=== PATIENT | male | born 1970 | race Caucasian/White ===

== ENCOUNTER 2017-12-15 22:59 | Emergency (ER) | payer BC ==
[~2017-12-15] VITALS: Ht 182.9 cm; Wt 114.3 kg
[~2017-12-15 22:59] MED LIST: LANS30CA8 PO; LEVO500T78 PO; PHEN200T27 PO; TRAM50TA2 PO
[2017-12-16] MEDS ORDERED: morphine INJ 10 MG/ML 1ML (SYR OR VIAL) IM STA (00:03)
[2017-12-16] MEDS ORDERED: KETOROLAC 60 MG/2 ML VIAL IM STA (00:03)
[2017-12-16] MEDS ORDERED: BENZ200C51 (00:04)
[2017-12-16] MEDS ORDERED: AMOX875T2 (00:04)
[2017-12-16] MEDS ORDERED: DEXAMETHASONE 10 MG/ML (DECADRON) 1 ML VIAL IM ONE (00:15)
--- NOTE | 2017-12-16 00:43 | ED EENT ---
History of Present Illness General Chief Complaint: Oral/Throat Problems Stated Complaint: COUGH;SORE THROAT Nursing Triage Note: PT TO ED 7 W/ C/O SORE THROAT ONSET SAT, WORSE TODAY. REPORTS WAS SEEN AT " THAT ONE PLACE, I DON'T KNOW THE NAME NOW" ET WAS TOLD HE DIDN'T HAVE THE FLU BUT IS BEING TREATED FOR STREP. STATES NOW IS "ALMOST" UNABLE TO SWALLOW. NO OTHER C/O VOICED Source: patient, family Exam Limitations: no limitations History of Present Illness Date Seen by Provider: Dec 15, 2017 Time Seen by Provider: 23:55 Initial Comments Here with report of fairly significant sore throat today and yesterday. States that he is UNABLE to swallow. He is able to swallow his secretions. Take ibuprofen at about 3 p.m. and has not taken anything since. [facility] and started on amoxicillin after influenza was negative given his sore throat and concerns for possible strep throat. Has started that. States the pain is quite significant was actually unable to sleep last night due to the pain. Timing/Duration: gradual, yesterday Severity: moderate Location: throat Prearrival Treatment: over the counter meds, prescription meds Associated Symptoms: No cough, No ear drainage, fever, nasal congestion/ drainage, sore throat Allergies and Home Medications Allergies Coded Allergies: No Known Drug Allergies (Unverified , 08/28/14) Home Medications Amoxicillin 875 Mg Tablet, (Reported) Benzonatate 200 Mg Capsule, (Reported) Review of Systems Constitutional: see HPI, No chills, fever Eyes: No Symptoms Reported Ears: No Symptoms Reported Nose: pain, clear discharge Mouth: no symptoms reported Throat: pain, swelling, denies neck stiffness, denies hoarse, denies aphonia, painful swallowing Respiratory: cough, No short of breath Cardiovascular: no symptoms reported Gastrointestinal: no symptoms reported Skin: no symptoms reported Past Uoblyrf-Mpsjfy-Ildidi Hx Patient Social History Alcohol Use: Denies Use Recreational Drug Use: No Smoking Status: Never a Smoker Recent Foreign Travel: No Contact w/Someone Who Travel: No Recent Infectious Disease Expo: No Physical Abuse: No Sexual Abuse: No Mistreated: No Fear: No Surgeries History of Surgeries: Yes (knee, hernia, thumb) Surgeries: Appendectomy, Orthopedic Respiratory History of Respiratory Disorde: Yes (asthma as child) Respiratory Disorders: Asthma Cardiovascular History of Cardiac Disorders: No Neurological History of Neurological Disord: No Reproductive System Hx Reproductive Disorders: No Sexually Transmitted Disease: No Gastrointestinal History of Gastrointestinal Di: Yes Gastrointestinal Disorders: Gastroesophageal Reflux Musculoskeletal History of Musculoskeletal Dis: No Endocrine History of Endocrine Disorders: No Cancer History of Cancer: No Psychosocial History of Psychiatric Problem: No Suicide Risk Score: 0 Integumentary History of Skin or Integumenta: No Blood Transfusions History of Blood Disorders: No Reviewed Nursing Assessment Reviewed/Agree w Nursing PMH: Yes Family Medical History Significant Family History: No Pertinent Family Hx Physical Exam Vital Signs Vital Signs - First Documented 12/15/17 23:15 Temp 98.9 Pulse 87 Resp 18 B/P (MAP) 139/100 (113) Pulse Ox 96 O2 Delivery Room Air General Appearance: WD/WN, mild distress (throat pain) Eyes: bilateral eye normal inspection, bilateral eye PERRL, bilateral eye EOMI Ears: bilateral ear auricle normal, bilateral ear canal normal, bilateral ear TM normal Nose: other (moderate bilateral nasal congestion with erythema and clear rhinorrhea) Mouth/Throat: pharynx swelling, pharynx tenderness, No tonsillar exudate Neck: full range of motion, supple, lymphadenopathy (R), lymphadenopathy (L) Cardiovascular: regular rate, rhythm, no murmur Respiratory: lungs clear, normal breath sounds Gastrointestinal: non tender, soft Neurologic/Psychiatric: alert, oriented x 3 Progress/Results/Core Measures Results/Orders My Orders Orders - CINDY FELIX MD Ketorolac Injection (Toradol Injection) (12/16/17 00:03) Morphine Injection (Morphine Injection (12/16/17 00:03) Dexamethasone Injection (Decadron Inject (12/16/17 00:15) Medications Given in ED Current Medications Medications Dose Ordered Sig/Qian Route Start Time Stop Time Status Last Admin Dose Admin Dexamethasone Sodium Phosphate 10 mg ONCE ONCE IM 12/16/17 00:15 12/16/17 00:16 DC 12/16/17 00:20 10 MG Vital Signs/I&O Vital Sign - Last 12Hours 12/15/17 23:15 Temp 98.9 Pulse 87 Resp 18 B/P (MAP) 139/100 (113) Pulse Ox 96 O2 Delivery Room Air Blood Pressure Mean: 113 Progress Note : Progress Note Seen and evaluated. Patient is on amoxicillin already. Given his pain in the pharyngitis we will initiate Decadron 10 mg IM. Also due to pain we will give Toradol 60 mg IM and morphine 10 mg IM. Monitor patient. 0036: A little better. Discharged home with return precautions. Patient verbalize understanding instructions and agreement with plan. Departure Impression Impression: Primary Impression: Pharyngitis Qualified Codes: J02.9 - Acute pharyngitis, unspecified Additional Impression: Upper respiratory infection Qualified Codes: J06.9 - Acute upper respiratory infection, unspecified Disposition: HOME, SELF-CARE Condition: Stable Departure-Patient Inst. Decision time for Depature: 00:39 Referrals: NO,LOCAL PHYSICIAN (PCP/Family) Primary Care Physician Patient Instructions: Strep Throat (DC), Viral Upper Respiratory Infection, Adult (DC) Add. Discharge Instructions: All discharge instructions reviewed with patient and/or family. Voiced understanding. Continue ibuprofen 800 mg every 8 hours as needed for pain. Take other medications as directed. You may take Tylenol or the generic acetaminophen, 1000 mg every 8 hours as needed for fever or pain as well but do not take if you 're taking the hydrocodone-containing medicine as they both have acetaminophen in them. You may alternate Tylenol and ibuprofen every 4 hours. Return for worse pain, fever, vomiting, weakness, breathing problems or other concerns as needed. Drink plenty of fluids. CINDY FELIX MD Dec 16, 2017 00:43
[2017-12-16] MEDS ORDERED: RX-HYDROCODONE/APAP 5/325 MG #4 TAB PK PO PRN (01:00)
[2017-12-16] MEDS ORDERED: ONDANSETRON 4 MG (ZOFRAN) ORAL DISSOLVE TAB ONE (01:04)
[2017-12-16 01:28] VITALS: BP 123/78
--- OUTSIDE RECORDS SUMMARY | 2017-12-16 10:19 | XMS REPORT ---
Author Author [facility] Organization [facility] Address [address] [place], [place] [id number] Care Team Providers Care Integrity Consultant Name Role Phone PCP Unavailable Allergies and Adverse Reactions Name Reaction Notes NO KNOWN DRUG ALLERGIES Plan of Treatment Not available. Medications Active Name Start Date Estimated Completion Date SIG Comments fluticasone nasal spray,suspension 50 mcg/actuation 02/28/2015 inhale 1 spray (50 mcg) in each nostril by intranasal route 2 times per day Benicar HCT oral tablet 40-12.5 mg 03/27/2015 04/10/2015 take 1 tablet by oral route once daily for 14 days Discontinued Name Start Date Discontinued Date SIG Comments Phenergan-Codeine Oral Syrup 6.25-10 mg/5 mL 01/15/2015 04/01/2015 take 5 milliliters by oral route 4 times a day Keflex Oral Capsule 500 mg 01/15/2015 04/01/2015 one PO TID Problem List Description Status Onset Dysphagia, unspecified Active Seasonal Allergies Active 02/28/2015 Concussion Active 04/01/2015 Essential Hypertension Active 04/01/2015 Vital Signs Date Time BP-Sys(mm[Hg] BP-Batool(mm[Hg]) HR(bpm) RR(rpm) Temp WT HT HC BMI BSA BMI Percentile O2 Sat(%) 03/28/2015 8:57:00 AM 100 mmHg 70 mmHg 92 bpm 18 rpm 98.7 F 227 lbs 72 in 30.79 kg/m2 2.29 m2 100 % 03/26/2015 9:24:00 AM 150 mmHg 110 mmHg 60 bpm 18 rpm 97.2 F 237 lbs 72 in 32.1426 kg/m 2.3369 m 99 % 02/28/2015 8:25:00 AM 140 mmHg 90 mmHg 64 bpm 18 rpm 98.4 F 246 lbs 72 in 33.36 kg/m2 2.38 m2 100 % 01/11/2015 1:50:00 PM 130 mmHg 80 mmHg 73 bpm 18 rpm 96.8 F 245 lbs 72 in 33.2276 kg/m 2.376 m 98 % 02/27/2012 10:28:00 AM 122 mmHg 80 mmHg 60 bpm 227 lbs 72 in 30.79 kg/m2 2.29 m2 Social History Name Description Comments Tobacco Current every day smoker History of Procedures Date Ordered Description Order Status 01/11/2015 12:00 AM THER/PROPH/DIAG INJ SC/IM Reviewed 02/28/2015 12:00 AM THER/PROPH/DIAG INJ SC/IM Reviewed Results Summary Not available. History Of Immunizations Not available. History of Past Illness Name Date of Onset Comments Dysphagia, unspecified Seasonal Allergies 02/28/2015 Concussion 04/01/2015 Essential Hypertension 04/01/2015 Dysphagia, pharyngoesophageal phase Feb 27 2012 10:29AM Eustachian Tube Dysfunction Jan 11 2015 1:51PM Upper Respiratory Infection Jan 11 2015 1:51PM Nasal congestion Jan 11 2015 1:51PM Seasonal Allergies Feb 28 2015 8:27AM Sinus pressure Feb 28 2015 8:27AM Essential Hypertension Mar 26 2015 9:25AM Headache Mar 26 2015 9:25AM Concussion Mar 26 2015 9:25AM Essential Hypertension Mar 28 2015 8:58AM Concussion Mar 28 2015 8:58AM Payers Insurance Name Company Name Plan Name Plan Number Policy Number Policy Group Number [id number] N/A History of Encounters Visit Date Visit Type Provider 03/28/2015 Office visit JUAN PABLO JAY 03/26/2015 Office visit JUAN PABLO JAY 02/28/2015 Office visit JUAN PABLO JAY 01/11/2015 Office visit JUAN PABLO JAY 02/27/2012 Office visit JUAN PABLO JAY
--- OUTSIDE RECORDS SUMMARY | 2017-12-16 10:19 | XMS REPORT ---
Author Author [facility] Organization [facility] Address [address] [place], [place] [id number] Care Team Providers Care Clinical Unit Educator Name Role Phone PCP Unavailable Allergies and Adverse Reactions Name Reaction Notes NO KNOWN DRUG ALLERGIES Plan of Treatment Not available. Medications Active Name Start Date Estimated Completion Date SIG Comments Phenergan-Codeine Oral Syrup 6.25-10 mg/5 mL 01/15/2015 take 5 milliliters by oral route 4 times a day Keflex Oral Capsule 500 mg 01/15/2015 one PO TID fluticasone nasal spray,suspension 50 mcg/actuation 02/28/2015 inhale 1 spray (50 mcg) in each nostril by intranasal route 2 times per day Benicar HCT oral tablet 40-12.5 mg 03/27/2015 04/10/2015 take 1 tablet by oral route once daily for 14 days Problem List Description Status Onset Dysphagia, unspecified Active Seasonal Allergies Active 02/28/2015 Vital Signs Date Time BP-Sys(mm[Hg] BP-Batool(mm[Hg]) HR(bpm) RR(rpm) Temp WT HT HC BMI BSA BMI Percentile O2 Sat(%) 03/26/2015 9:24:00 AM 150 mmHg 110 mmHg 60 bpm 18 rpm 97.2 F 237 lbs 72 in 32.14 kg/m2 2.34 m2 99 % 02/28/2015 8:25:00 AM 140 mmHg 90 mmHg 64 bpm 18 rpm 98.4 F 246 lbs 72 in 33.3633 kg/m 2.3809 m 100 % 01/11/2015 1:50:00 PM 130 mmHg 80 mmHg 73 bpm 18 rpm 96.8 F 245 lbs 72 in 33.23 kg/m2 2.38 m2 98 % 02/27/2012 10:28:00 AM 122 mmHg 80 mmHg 60 bpm 227 lbs 72 in 30.7864 kg/m 2.2871 m Social History Name Description Comments Tobacco Current every day smoker History of Procedures Date Ordered Description Order Status 01/11/2015 12:00 AM THER/PROPH/DIAG INJ SC/IM Reviewed 02/28/2015 12:00 AM THER/PROPH/DIAG INJ SC/IM Reviewed Results Summary Not available. History Of Immunizations Not available. History of Past Illness Name Date of Onset Comments Dysphagia, unspecified Seasonal Allergies 02/28/2015 Dysphagia, pharyngoesophageal phase Feb 27 2012 10:29AM Eustachian Tube Dysfunction Jan 11 2015 1:51PM Upper Respiratory Infection Jan 11 2015 1:51PM Nasal congestion Jan 11 2015 1:51PM Seasonal Allergies Feb 28 2015 8:27AM Sinus pressure Feb 28 2015 8:27AM Essential Hypertension Mar 26 2015 9:25AM Headache Mar 26 2015 9:25AM Concussion Mar 26 2015 9:25AM Payers Insurance Name Company Name Plan Name Plan Number Policy Number Policy Group Number [id number] N/A History of Encounters Visit Date Visit Type Provider 03/26/2015 Office visit JUAN PABLO JAY 02/28/2015 Office visit JUAN PABLO JAY 01/11/2015 Office visit JUAN PABLO JAY 02/27/2012 Office visit JUAN PABLO JAY
--- OUTSIDE RECORDS SUMMARY | 2017-12-16 10:20 | XMS REPORT ---
Author Author JUAN PABLO VERNON [facility] Address [address] [place], [place] [id number] Care Team Providers Care Biomedical Manager Name Role Phone JUAN PABLO VERNON PCP Unavailable Allergies and Adverse Reactions Name Reaction Notes NO KNOWN DRUG ALLERGIES Plan of Treatment Not available. Medications Active Name Start Date Estimated Completion Date SIG Comments fluticasone 50 mcg/actuation nasal spray,suspension 02/28/2015 inhale 1 spray (50 mcg) in each nostril by intranasal route 2 times per day cyclobenzaprine 10 mg oral tablet 09/05/2015 take 1 tablet (10 mg) by oral route 3 times per day PRN spasm Name Start Date Expiration Date SIG Comments Benicar HCT 40-12.5 mg oral tablet 03/27/2015 04/10/2015 take 1 tablet by oral route once daily for 14 days Levaquin 500 mg oral tablet 05/14/2015 05/28/2015 take 1 tablet (500 mg) by oral route once daily for 14 days prednisone 20 mg oral tablet 11/27/2015 12/05/2015 4x2 days 3x2 days 2x2 days 1x2 days Zithromax Z-Manny 250 mg oral tablet 11/27/2015 12/02/2015 take 2 tablets (500 mg) by oral route once daily for 1 day then 1 tablet (250 mg) by oral route once daily for 4 days Discontinued Name Start Date Discontinued Date SIG Comments Phenergan-Codeine 6.25-10 mg/5 mL oral syrup 01/15/2015 04/01/2015 take 5 milliliters by oral route 4 times a day Keflex 500 mg oral capsule 01/15/2015 04/01/2015 one PO TID Problem List Description Status Onset Dysphagia, unspecified Active Seasonal Allergies Active 02/28/2015 Concussion Active 04/01/2015 Essential Hypertension Active 04/01/2015 Snoring Active 04/13/2015 Hypersomnolence Active 04/13/2015 Fatigue Active 04/13/2015 Vital Signs Date Time BP-Sys(mm[Hg] BP-Batool(mm[Hg]) HR(bpm) RR(rpm) Temp WT HT HC BMI BSA BMI Percentile O2 Sat(%) 11/30/2015 10:22:00 AM 130 mmHg 78 mmHg 78 bpm 18 rpm 96 F 245 lbs 71 in 34.17 kg/m2 2.36 m2 97 % 09/05/2015 9:09:00 AM 130 mmHg 85 mmHg 72 bpm 16 rpm 98.4 F 244 lbs 72 in 33.092 kg/m 2.3712 m 99 % 05/14/2015 1:35:00 PM 140 mmHg 80 mmHg 64 bpm 18 rpm 98.5 F 236 lbs 72 in 32.01 kg/m2 2.33 m2 98 % 04/12/2015 11:34:00 AM 120 mmHg 70 mmHg 237 lbs 03/28/2015 8:57:00 AM 100 mmHg 70 mmHg [...] of Procedures Date Ordered Description Order Status 09/05/2015 12:00 AM Decadron, Per 1 Mg [facility]# [address]-19 Reviewed 09/05/2015 12:00 AM Toradol 60 Mg [facility]#4266-1346-43 Reviewed 01/11/2015 12:00 AM THER/PROPH/DIAG INJ SC/IM Reviewed 01/11/2015 12:00 AM Decadron, Per 1 Mg [facility]# [address]-57 Reviewed 01/11/2015 12:00 AM Depo-Medrol, Per 80 Mg DEC#0417-4406-51 Reviewed 02/28/2015 12:00 AM THER/PROPH/DIAG INJ SC/IM Reviewed 02/28/2015 12:00 AM Decadron, Per 1 Mg [place]# [address]-58 Reviewed 02/28/2015 12:00 AM Depo-Medrol, Per 80 Mg [facility]#8574-0058-96 Reviewed 04/12/2015 12:00 AM COMPLETE CBC W/AUTO DIFF WBC Returned 04/12/2015 12:00 AM COMPREHEN METABOLIC PANEL Returned 04/12/2015 12:00 AM LIPID PANEL Reviewed 04/12/2015 12:00 AM ASSAY OF TOTAL TESTOSTERONE Returned 04/12/2015 12:00 AM ASSAY OF TOTAL THYROXINE Returned 04/12/2015 12:00 AM ASSAY OF THYROID (T3 OR T4) Returned 05/14/2015 12:00 AM THER/PROPH/DIAG INJ SC/IM Reviewed 05/14/2015 12:00 AM Decadron, Per 1 Mg [facility]# [address]-10 Reviewed 05/14/2015 12:00 AM Depo-Medrol, Per 80 Mg [facility]#1749-6551-76 Reviewed 05/14/2015 12:00 AM Rocephin 1 gram [facility]#6643-7250-08 Reviewed Results Summary Data and Description Results 04/12/2015 3:41 PM WBC 6.5 RBC 5.08 HGB 16.20 g/dLHCT 45.70 %MCV 90.0 fLMCH 31.90 pgMCHC 35.40 g/dLRDW CV 13.40 %MPV 10.60 fLPLT 278 %NEUT 54.50 %%LYMP 31.0 %%MONO 8.0 %%EOS 5.90 %%BASO 0.60 %#NEUT 3.53 #LYMP 2.01 #MONO 0.52 #EOS 0.38 #BASO 0.04 TRIGLYCERIDES 109.0 mg/dLCHOLESTEROL 170.0 mg/dLHDL 40.0 mg/ dLLDL (CALC) 108.0 mg/dLGLUCOSE 93.0 mg/dLSODIUM 139.0 mmol/LPOTASSIUM 4.10 mmol /LCHLORIDE 104.0 mmol/LCO2 26.0 mmol/LBUN 13.0 mg/dLCREATININE 1.20 mg/dLSGOT/ AST 18.0 IU/LSGPT/ALT 30.0 IU/LALK PHOS 78.0 IU/LTOTAL PROTEIN 7.40 g/dLALBUMIN 4.80 g/dLTOTAL BILI 0.90 mg/dLCALCIUM 9.80 mg/dLeGFR >60 mL/min/1.73 m2TSH 1.410 uIU/mLTESTOSTERONE 422.0 ng/dL History Of Immunizations Not available. History of Past Illness Name Date of Onset Comments Dysphagia, unspecified Seasonal Allergies 02/28/2015 Concussion 04/01/2015 Essential Hypertension 04/01/2015 Snoring 04/13/2015 Hypersomnolence 04/13/2015 Fatigue 04/13/2015 Dysphagia, pharyngoesophageal phase Feb 27 2012 10:29AM [...] 2015 8:58AM Concussion Mar 28 2015 8:58AM Fatigue Apr 12 2015 12:31PM Hyperlipidemia Apr 12 2015 12:31PM Essential Hypertension Apr 12 2015 11:35AM Fatigue Apr 12 2015 11:35AM Hypersomnolence Apr 12 2015 11:35AM Snoring Apr 12 2015 11:35AM Sinusitis, Acute May 14 2015 1:35PM Seasonal Allergies May 14 2015 1:35PM Pharyngitis, Acute May 14 2015 1:35PM Post-nasal drainage May 14 2015 1:35PM Fever May 14 2015 1:35PM Moderate Acute Spasmodic torticollis Sep 05 2015 9:10AM Moderate Acute Muscle spasm of back Sep 05 2015 9:10AM Moderate Acute Cough Nov 30 2015 10:22AM Post-nasal drainage Nov 30 2015 10:22AM Upper respiratory tract infection, unspecified upper respiratory infection Nov 30 2015 10:22AM Fever, unspecified fever cause Nov 30 2015 10:22AM Moderate Acute Body aches Nov 30 2015 10:22AM Payers Insurance Name Company Name Plan Name Plan Number Policy Number Policy Group Number Start Date [facility] [id number] N/A History of Encounters Visit Date Visit Type Provider 11/30/2015 Office visit JUAN PABLO JAY 09/05/2015 Office visit JUAN PABLO JAY 05/14/2015 Office visit 05/14/2015 Office visit JUAN PABLO JAY 04/12/2015 Office visit JUAN PABLO JAY 03/28/2015 Office visit JUAN PABLO JAY 03/26/2015 Office visit JUAN PABLO JAY 02/28/2015 Office visit 02/28/2015 Office visit JUAN PABLO JAY 01/11/2015 Office visit 01/11/2015 Office visit JUAN PABLO JAY 02/27/2012 Office visit JUAN PABLO JAY
--- OUTSIDE RECORDS SUMMARY | 2017-12-16 10:20 | XMS REPORT ---
Author Author [facility] Organization [facility] Address [address] [place], [place] [address] Care Team Providers Care Senior Director Of [employer] Name Role Phone PCP Unavailable Allergies and Adverse Reactions Name Reaction Notes NO KNOWN DRUG ALLERGIES Plan of Treatment Not available. Medications Active Name Start Date Estimated Completion Date SIG Comments fluticasone nasal spray,suspension 50 mcg/actuation 02/28/2015 inhale 1 spray (50 mcg) in each nostril by intranasal route 2 times per day Name Start Date Expiration Date SIG Comments Benicar HCT oral tablet 40-12.5 mg 03/27/2015 [...] HC BMI BSA BMI Percentile O2 Sat(%) 04/12/2015 11:34:00 AM 120 mmHg 70 mmHg 237 lbs 03/28/2015 8:57:00 AM 100 mmHg 70 mmHg 92 bpm 18 rpm 98.7 F 227 lbs 72 in 30.7864 kg/m 2.2871 m 100 % 03/26/2015 9:24:00 AM 150 mmHg [...] 02/28/2015 12:00 AM THER/PROPH/DIAG INJ SC/IM Reviewed 04/12/2015 12:00 AM COMPLETE CBC W/AUTO DIFF WBC Returned 04/12/2015 12:00 AM COMPREHEN METABOLIC PANEL Returned 04/12/2015 12:00 AM LIPID PANEL Returned 04/12/2015 12:00 AM ASSAY OF TOTAL TESTOSTERONE Returned 04/12/2015 12:00 AM ASSAY OF TOTAL THYROXINE Returned 04/12/2015 12:00 AM ASSAY OF THYROID (T3 OR T4) Returned Results Summary Data and Description Results 04/12/2015 [...] mg/dLCALCIUM 9.80 mg/dLeGFR >60 mL/min/1.73 m2TSH 1.410 uIU/mL History Of Immunizations Not available. History of [...] 2015 11:35AM Snoring Apr 12 2015 11:35AM Payers Insurance Name Company Name Plan Name Plan Number Policy Number Policy Group Number Start Date [facility] [id number] N/A History of Encounters Visit Date Visit Type Provider 04/12/2015 Office visit JUAN PABLO JAY 03/28/2015 Office visit JUAN PABLO JAY 03/26/2015 Office visit JUAN PABLO JAY 02/28/2015 Office visit JUAN PABLO JAY 01/11/2015 Office visit JUAN PABLO JAY 02/27/2012 Office visit JUAN PABLO JAY
--- OUTSIDE RECORDS SUMMARY | 2017-12-16 10:20 | XMS REPORT ---
Author JUAN PABLO Del Castillo [facility] Address [address] [place], [place] [address] Care Team Providers Care Russian History Professor Name Role Phone JUAN PABLO VERNON PCP Unavailable Allergies and Adverse Reactions Name Reaction Notes NO KNOWN DRUG ALLERGIES Plan of Treatment Not available. Medications Active Name Start Date Estimated Completion Date SIG Comments fluticasone 50 mcg/actuation nasal spray,suspension 02/28/2015 inhale 1 spray (50 mcg) in each nostril by intranasal route 2 times per day prednisone 20 mg oral tablet 09/05/2015 09/13/2015 4x2 days 3x2 days 2x2 days 1x2 days cyclobenzaprine 10 mg oral tablet 09/05/2015 take [...] HC BMI BSA BMI Percentile O2 Sat(%) 09/05/2015 9:09:00 AM 130 mmHg 85 mmHg 72 bpm 16 rpm 98.4 F 244 lbs 72 in 33.09 kg/m2 2.37 m2 99 % 05/14/2015 1:35:00 PM 140 mmHg 80 mmHg 64 bpm 18 rpm 98.5 F 236 lbs 72 in 32.007 kg/m 2.332 m 98 % 04/12/2015 11:34:00 AM 120 mmHg [...] F 246 lbs 72 in 33.3633 kg/m 2.38 m2 100 % 01/11/2015 1:50:00 PM 130 mmHg 80 mmHg 73 bpm 18 rpm 96.8 F 245 lbs 72 in 33.23 kg/m2 2.376 m 98 % 02/27/2012 10:28:00 AM 122 mmHg 80 mmHg 60 bpm 227 lbs 72 in 30.7864 kg/m 2.29 m2 Social History Name Description Comments Tobacco Current every day smoker History of Procedures Date Ordered Description Order Status 01/11/2015 12:00 AM THER/PROPH/DIAG INJ SC/IM Reviewed 01/11/2015 12:00 AM Decadron, Per 1 Mg [facility]# [address]-78 Reviewed 01/11/2015 12:00 AM Depo-Medrol, Per 80 Mg [facility]#6893-2493-28 Reviewed 02/28/2015 12:00 AM THER/PROPH/DIAG INJ SC/IM Reviewed 02/28/2015 12:00 AM Decadron, Per 1 Mg [facility]# [address]-93 Reviewed 02/28/2015 12:00 AM Depo-Medrol, Per 80 Mg [facility]#1340-6706-01 Reviewed 04/12/2015 12:00 AM COMPLETE CBC W/AUTO DIFF WBC Returned 04/12/2015 12:00 AM COMPREHEN METABOLIC PANEL Returned 04/12/2015 12:00 AM LIPID PANEL Reviewed 04/12/2015 12:00 AM ASSAY OF TOTAL TESTOSTERONE Returned 04/12/2015 12:00 AM ASSAY OF TOTAL THYROXINE Returned 04/12/2015 12:00 AM ASSAY OF THYROID (T3 OR T4) Returned 05/14/2015 12:00 AM THER/PROPH/DIAG INJ SC/IM Reviewed 05/14/2015 12:00 AM Decadron, Per 1 Mg [facility]# [id number] Reviewed 05/14/2015 12:00 AM Depo-Medrol, Per 80 Mg [facility]#2434-7908-37 Reviewed 05/14/2015 12:00 AM Rocephin 1 gram [facility]#0823-5193-88 Reviewed Results Summary Data and Description Results [...] spasm of back Sep 05 2015 9:10AM Payers Insurance Name Company Name Plan Name Plan Number Policy Number Policy Group Number [id number] N/A History of Encounters Visit Date Visit Type Provider 09/05/2015 Office visit JUAN PABLO JAY 05/14/2015 Office visit JUAN PABLO JAY 04/12/2015 Office visit JUAN PABLO JAY 03/28/2015 Office visit JUAN PABLO JAY 03/26/2015 Office visit JUAN PABLO JAY 02/28/2015 Office visit JUAN PABLO JAY 01/11/2015 Office visit JUAN PABLO JAY 02/27/2012 Office visit JUAN PABLO JAY
--- OUTSIDE RECORDS SUMMARY | 2017-12-16 10:20 | XMS REPORT ---
Author Author [facility] Organization [facility] Address [address] [place], [place] [id number] Care Team Providers Care Instructor Weaving Name Role Phone PCP Unavailable Allergies and Adverse Reactions Name Reaction Notes NO KNOWN DRUG ALLERGIES Plan of Treatment Planned Activity Comments Planned Date Planned Time Plan/Goal COMPLETE CBC W/AUTO DIFF WBC 04/12/2015 12:00 AM COMPREHEN METABOLIC PANEL 04/12/2015 12:00 AM LIPID PANEL 04/12/2015 12:00 AM ASSAY OF TOTAL TESTOSTERONE 04/12/2015 12:00 AM ASSAY OF TOTAL THYROXINE 04/12/2015 12:00 AM ASSAY OF THYROID (T3 OR T4) 04/12/2015 12:00 AM Medications Active Name Start Date Estimated Completion [...] 2015 12:31PM Hyperlipidemia Apr 12 2015 12:31PM Payers Insurance Name Company Name Plan Name Plan Number Policy Number Policy Group Number Start Date [facility] [id number] N/A History of Encounters Visit Date Visit Type Provider 04/12/2015 Office visit JUAN PABLO JAY 03/28/2015 Office visit JUAN PABLO JAY 03/26/2015 Office visit JUAN PABLO JAY 02/28/2015 Office visit JUAN PABLO JAY 01/11/2015 Office visit JUAN PABLO JAY 02/27/2012 Office visit JUAN PABLO JAY
--- OUTSIDE RECORDS SUMMARY | 2017-12-16 10:20 | XMS REPORT ---
Author Author JUAN PABLO VERNON [facility] Address [address] [place], [place] [phone] Care Team Providers Care Boring And Filling Machine Operator Name Role Phone JUAN PABLO VERNON PCP [...] 09/05/2015 12:00 AM Decadron, Per 1 Mg [facility]# [address]-70 Reviewed 09/05/2015 12:00 AM Toradol 60 Mg [facility]#0115-3302-02 Reviewed 01/11/2015 12:00 AM THER/PROPH/DIAG INJ SC/IM Reviewed 01/11/2015 12:00 AM Decadron, Per 1 Mg [facility]# [address]-41 Reviewed 01/11/2015 12:00 AM Depo-Medrol, Per 80 Mg [facility]#7694-0128-24 Reviewed 02/28/2015 12:00 AM THER/PROPH/DIAG INJ SC/IM Reviewed 02/28/2015 12:00 AM Decadron, Per 1 Mg [place]# [address]-43 Reviewed 02/28/2015 12:00 AM Depo-Medrol, Per 80 Mg [facility]#9520-4559-25 Reviewed 04/12/2015 12:00 AM COMPLETE CBC W/AUTO DIFF WBC Returned 04/12/2015 12:00 AM COMPREHEN METABOLIC PANEL Returned 04/12/2015 12:00 AM LIPID PANEL Reviewed 04/12/2015 12:00 AM ASSAY OF TOTAL TESTOSTERONE Returned 04/12/2015 12:00 AM ASSAY OF TOTAL THYROXINE Returned 04/12/2015 12:00 AM ASSAY OF THYROID (T3 OR T4) Returned 05/14/2015 12:00 AM THER/PROPH/DIAG INJ SC/IM Reviewed 05/14/2015 12:00 AM Decadron, Per 1 Mg [facility]# [address]-15 Reviewed 05/14/2015 12:00 AM Depo-Medrol, Per 80 Mg [facility]#2079-4394-93 Reviewed 05/14/2015 12:00 AM Rocephin 1 gram [facility]#3108-5260-70 Reviewed Results Summary Data and Description Results [...] Policy Number Policy Group Number Start Date [facility] [id number] N/A History of Encounters Visit Date Visit [...]
--- OUTSIDE RECORDS SUMMARY | 2017-12-16 10:21 | XMS REPORT | Continuity of Care Document ---
Author Author [facility] Organization [facility] Address Unknown Phone Unavailable Allergies Active Description Code Type Severity Reaction Onset Reported/Identified Relationship to Patient Clinical Status Yes No Known Drug Allergies [id number] Drug Allergy Unknown N/A 08/28/2014 Medications There is no data. Problems Date Dx Coded Attending Type Code Diagnosis Diagnosed By 08/28/2014 IVELISSE LAU Ot 285.9 ANEMIA NOS 08/28/2014 IVELISSE LAU Ot 553.1 UMBILICAL HERNIA 08/28/2014 IVELISSE LAU Ot 599.0 URIN TRACT INFECTION NOS 08/28/2014 IVELISSE LAU Ot 789.01 ABDOMINAL PAIN, RIGHT UPPER QUADRANT 03/19/2015 RENÉE PIRES LUMBER PILER OPERATOR Ot 850.9 CONCUSSION NOS 03/19/2015 RENÉE PIRES APRN Ot 959.01 HEAD INJURY, NOS 03/19/2015 RENÉE PIRES LUMBER PILER OPERATOR Ot E000.8 OTHER EXTERNAL CAUSE STATUS 03/19/2015 RENÉE PIRES LUMBER PILER OPERATOR Ot E007.3 ACTIVITIES INVOLVING BASEBALL 03/19/2015 RENÉE PIRES LUMBER PILER OPERATOR Ot E917.0 STRUCK IN SPORTS 04/30/2015 Ot 784.99 04/30/2015 Ot 787.20 06/09/2016 Ot 784.99 OTHER SYMPTOMS INVOLVING HEAD AND NECK 06/09/2016 Ot 787.20 DYSPHAGIA, UNSPECIFIED 06/12/2016 Ot 784.99 OTHER SYMPTOMS INVOLVING HEAD AND NECK 06/12/2016 Ot 787.20 DYSPHAGIA, UNSPECIFIED 06/27/2016 Ot 784.99 OTHER SYMPTOMS INVOLVING HEAD AND NECK 06/27/2016 Ot 787.20 DYSPHAGIA, UNSPECIFIED Procedures There is no data. Results There is no data. Encounters ACCT No. Visit Date/Time Discharge Status Pt. Type Provider Facility Loc./Unit Complaint [id number] 12/15/2017 23:00:00 12/16/2017 01:28:00 DIS Emergency CINDY FELIX MD [facility] ER COUGH;SORE THROAT [id number] 03/19/2015 20:51:00 03/19/2015 22:15:00 DIS Emergency RENÉE PIRES APRN [facility] ER HIT IN HEAD WITH BASEBALL [id number] 08/28/2014 15:46:00 08/28/2014 18:49:00 DIS Emergency IVELISSE LAU [facility] ER UPPER ABD PAIN/ URINARY SYMPTOMS [id number] 04/30/2015 10:47:00 Document Registration [id number] 05/16/2015 08:51:18 05/16/2015 23: 59:59 CLS Outpatient [id number] 05/16/2015 08:51:16 05/16/2015 23: 59:59 CLS Outpatient [id number] 05/16/2015 08:51:17 05/16/2015 08: 51:18 DIS Outpatient [id number] 05/15/2015 07:39:23 05/15/2015 07: 39:23 DIS Outpatient [id number] 05/11/2015 13:26:01 05/11/2015 13: 26:02 DIS Outpatient [id number] 05/11/2015 10:14:37 05/11/2015 10: 14:37 DIS Outpatient [id number] 05/11/2015 10:14:36 05/11/2015 10: 14:36 DIS Outpatient [id number] 05/11/2015 10:14:31 05/11/2015 10: 14:33 DIS Outpatient [id number] 11/30/2015 10:46:06 11/30/2015 23:59:59 CLS Outpatient JUAN PABLO VERNON [id number] 09/05/2015 10:03:55 09/05/2015 23:59:59 CLS Outpatient JUAN PABLO VERNON [id number] 06/18/2015 22:09:44 06/18/2015 23:59:59 CLS Outpatient JUAN PABLO VERNON [id number] 06/18/2015 21:48:40 06/18/2015 23:59:59 JOSE Outpatient JUAN PABLO VERNON [id number] 06/18/2015 21:31:55 06/18/2015 23:59:59 JOSE Outpatient JUAN PABLO VERNON [id number] 06/18/2015 21:29:32 06/18/2015 23:59:59 JOSE Outpatient JUAN PABLO VERNON [id number] 02/28/2015 09:11:28 02/28/2015 23:59:59 CLS Outpatient JUAN PABLO VERNON
--- OUTSIDE RECORDS SUMMARY | 2017-12-16 10:21 | XMS REPORT ---
Author Author JUAN PABLO VERNON [facility] Address [address] [place], [place] [phone] Care Team Providers Care Windshield Repair Technician Name Role Phone JUAN PABLO VERNON PCP [...] route 3 times per day PRN spasm prednisone 20 mg oral tablet 11/27/2015 12/05/2015 4x2 days 3x2 days 2x2 days 1x2 days Zithromax Z-Manny 250 mg oral tablet 11/27/2015 12/02/2015 take 2 tablets (500 mg) by oral route once daily for 1 day then 1 tablet (250 mg) by oral route once daily for 4 days Name Start Date Expiration Date SIG Comments [...] 09/05/2015 12:00 AM Decadron, Per 1 Mg [facility]# [address]-96 Reviewed 09/05/2015 12:00 AM Toradol 60 Mg [facility]#1348-1659-38 Reviewed 01/11/2015 12:00 AM THER/PROPH/DIAG INJ SC/IM Reviewed 01/11/2015 12:00 AM Decadron, Per 1 Mg [facility]# [address]-14 Reviewed 01/11/2015 12:00 AM Depo-Medrol, Per 80 Mg [facility]#6669-7189-06 Reviewed 02/28/2015 12:00 AM THER/PROPH/DIAG INJ SC/IM Reviewed 02/28/2015 12:00 AM Decadron, Per 1 Mg [place]# [address]-67 Reviewed 02/28/2015 12:00 AM Depo-Medrol, Per 80 Mg [facility]#1979-5393-35 Reviewed 04/12/2015 12:00 AM COMPLETE CBC W/AUTO DIFF WBC Returned 04/12/2015 12:00 AM COMPREHEN METABOLIC PANEL Returned 04/12/2015 12:00 AM LIPID PANEL Reviewed 04/12/2015 12:00 AM ASSAY OF TOTAL TESTOSTERONE Returned 04/12/2015 12:00 AM ASSAY OF TOTAL THYROXINE Returned 04/12/2015 12:00 AM ASSAY OF THYROID (T3 OR T4) Returned 05/14/2015 12:00 AM THER/PROPH/DIAG INJ SC/IM Reviewed 05/14/2015 12:00 AM Decadron, Per 1 Mg [facility]# [address]-83 Reviewed 05/14/2015 12:00 AM Depo-Medrol, Per 80 Mg [facility]#1619-3859-74 Reviewed 05/14/2015 12:00 AM Rocephin 1 gram [facility]#0315-6587-82 Reviewed Results Summary Data and Description Results [...] Policy Number Policy Group Number Start Date [facility] [id number] N/A History of Encounters Visit Date Visit Type Provider 11/30/2015 Office visit JUAN PABLO JAY 09/05/2015 Office visit JUAN PABLO JAY 05/14/2015 Office visit 05/14/2015 Office visit JUAN PABLO JYA 04/12/2015 Office visit JUAN PABLO JAY 03/28/2015 Office visit JUAN PABLO JAY 03/26/2015 Office visit JUAN PABLO JAY 02/28/2015 Office visit 02/28/2015 Office visit JUAN PABLO JAY 01/11/2015 Office visit 01/11/2015 Office visit JUAN PABLO JAY 02/27/2012 Office visit JUAN PABLO JAY
--- OUTSIDE RECORDS SUMMARY | 2017-12-16 10:21 | XMS REPORT ---
Author Author [facility] Organization [facility] Address [address] [place], [place] [address] Care Team Providers Care Thermodynamic Physicist Name Role Phone PCP Unavailable Allergies and Adverse Reactions Name Reaction Notes NO KNOWN DRUG ALLERGIES Plan of Treatment Not available. Medications Active Name Start Date Estimated Completion Date SIG Comments fluticasone nasal spray,suspension 50 mcg/actuation 02/28/2015 inhale 1 spray (50 mcg) in each nostril by intranasal route 2 times per day Levaquin oral tablet 500 mg 05/14/2015 05/28/2015 take 1 tablet (500 mg) by oral route once daily for 14 days Name Start Date Expiration Date SIG [...] HC BMI BSA BMI Percentile O2 Sat(%) 05/14/2015 1:35:00 PM 140 mmHg 80 mmHg 64 bpm 18 rpm 98.5 F 236 lbs 72 in 32.01 kg/m2 2.33 m2 98 % 04/12/2015 11:34:00 AM 120 mmHg 70 mmHg 237 lbs 03/28/2015 8:57:00 AM 100 mmHg 70 mmHg 92 bpm 18 rpm 98.7 F 227 lbs 72 in 30.7864 kg/m 2.29 m2 100 % 03/26/2015 9:24:00 AM 150 mmHg 110 mmHg 60 bpm 18 rpm 97.2 F 237 lbs 72 in 32.14 kg/m2 2.3369 m 99 % 02/28/2015 8:25:00 AM [...] 05/14/2015 12:00 AM THER/PROPH/DIAG INJ SC/IM Reviewed Results Summary Data and Description Results [...] 2015 1:35PM Fever May 14 2015 1:35PM Payers Insurance Name Company Name Plan Name Plan Number Policy Number Policy Group Number Start Date [facility] [id number] N/A History of Encounters Visit Date Visit Type Provider 05/14/2015 Office visit JUAN PABLO JAY 04/12/2015 Office visit JUAN PABLO JAY 03/28/2015 Office visit JUAN PABLO JAY 03/26/2015 Office visit JUAN PABLO JAY 02/28/2015 Office visit JUAN PABLO JAY 01/11/2015 Office visit JUAN PABLO JAY 02/27/2012 Office visit JUAN PABLO JAY
== END 2017-12-16 01:28 | disposition home or self-care (01) ==
LOC: EDUNIT# 22:59 → ER 23:00
DX: J02.9 Acute pharyngitis, unspecified (principal); J45.909 Unspecified asthma, uncomplicated; K21.9 Gastro-esophageal reflux disease without esophagitis; Z90.49 Acquired absence of other specified parts of digestive tract
CPT/HCPCS: 96372; 99284

== ENCOUNTER 2021-10-17 19:43 | Emergency (ER) | payer BC ==
[~2021-10-17 19:43] MED LIST changes: +AMOX875T2; +BENZ200C51
[2021-10-17] MEDS ORDERED: LACTATED RINGERS 1,000 ML IV ONE (20:17)
[2021-10-17] MEDS ORDERED: KETOROLAC 30 MG/ML VIAL ONE (20:17)
[2021-10-17] MEDS ORDERED: KETOROLAC 30 MG/ML VIAL IVP STA (20:19)
[2021-10-17] MEDS ORDERED: LACTATED RINGERS 1,000 ML IV STA ×2 (20:19→21:00)
[2021-10-17 20:26] LABS: BASOPHILS % (AUTO) 0 % (0-10); EOSINOPHILS % (AUTO) 1 % (0-10); HEMATOCRIT 40 % (40-54); HEMOGLOBIN 14.5 g/dL (13.3-17.7); LYMPHOCYTES # (AUTO) 1.4 10^3/uL (1.0-4.0); LYMPHOCYTES % (AUTO) 17 % (12-44); MEAN CORPUSCULAR HEMOGLOBIN 31 pg (25-34); MEAN CORPUSCULAR HGB CONC 36 g/dL (32-36); MEAN CORPUSCULAR VOLUME 87 fL (80-99); MEAN PLATELET VOLUME 9.5 fL (9.0-12.2); MONOCYTES # (AUTO) 0.6 10^3/uL (0.0-1.0); MONOCYTES % (AUTO) 7 % (0-12); NEUTROPHILS # (AUTO) 6.5 10^3/uL (1.8-7.8); NEUTROPHILS % (AUTO) 76 % (42-75); PLATELET COUNT 311 10^3/uL (130-400); WHITE BLOOD COUNT 8.7 10^3/uL (4.3-11.0)
--- NOTE | 2021-10-17 20:34 | ED General ---
General Chief Complaint: COVID19 Suspect/Confirmed Stated Complaint: COVID POSITIVE, HEADACHE, FEVER, BODY ACHES Source of Information: Patient Exam Limitations: No Limitations History of Present Illness Date Seen by Provider: Oct 17, 2021 Time Seen by Provider: 20:05 Initial Comments Here with report of being Covid positive since 10/10/2021 via home test. Onset of symptoms 2 days prior. Notes that he has had increasing body aches and fatigue and not eating or drinking well. O2 saturations have been okay. Timing/Duration: Other Severity: Moderate (Current days) Associated Systoms: Cough, Fever/Chills, Loss of Appetite, Malaise, Weakness Allergies and Home Medications Allergies Coded Allergies: No Known Drug Allergies (Unverified , 08/28/14) Patient Home Medication List Home Medication List Reviewed: Yes Amoxicillin (Amoxicillin) 875 Mg Tablet, (Reported) Entered as Reported by: ANNA MANZANO on 12/16/17 0004 Benzonatate (Benzonatate) 200 Mg Capsule, (Reported) Entered as Reported by: ANNA MANZANO on 12/16/17 0004 Review of Systems Review of Systems Constitutional: chills, fever, weakness EENTM: nose congestion, throat pain Respiratory: cough; No short of breath Cardiovascular: No chest pain; palpitations Gastrointestinal: heartburn, nausea; No vomiting Genitourinary: no symptoms reported Musculoskeletal: No joint swelling; muscle pain; No muscle cramps Skin: No change in color, No lesions All Other Systems Reviewed Negative Unless Noted: Yes Past Ifiqguw-Ggvupb-Wskfvx Hx Patient Social History Tobacco Use?: No Use of E-Cig and/or Vaping dev: No Substance use?: No Alcohol Use?: No Past Medical History Surgeries: Yes (knee, hernia, thumb) Appendectomy, Orthopedic Respiratory: Yes (asthma as child) Asthma Cardiac: No Neurological: No Reproductive Disorders: No Sexually Transmitted Disease: No Gastrointestinal: Yes Gastroesophageal Reflux Musculoskeletal: No Endocrine: No Cancer: No Psychosocial: No Integumentary: No Blood Disorders: No Family Medical History Reviewed Nursing Family Hx No Pertinent Family Hx Physical Exam-Suspected Sepsis Physical Exam Vital Signs Vital Signs - First Documented 10/17/21 20:34 Temp 37.9 Pulse 117 Resp 18 B/P (MAP) 139/99 (112) Pulse Ox 94 O2 Delivery Room Air Capillary Refill : Height, Weight, BMI Height: 6'0" Weight: 252lbs. oz. 114.189379hy; BMI Method:Stated General Appearance: No Apparent Distress, WD/WN HEENT: PERRL/EOMI, Pharynx Normal Neck: Non Tender, Supple Respiratory: Lungs Clear, Normal Breath Sounds Cardiovascular: No Murmur, Tachycardia Gastrointestinal: Non Tender, Soft Back: Normal Inspection, No CVA Tenderness, No Vertebral Tenderness Extremity: Normal Range of Motion, Non Tender Neurologic/Psychiatric: Alert, Oriented x3 Skin: normal color, warm/dry Focused Exam Lactate Level 10/17/21 20:15: Lactic Acid Level 1.37 Lactic Acid Level Laboratory Tests Test 10/17/21 20:15 Lactic Acid Level 1.37 MMOL/L (0.50-2.00) Progress/Results/Core Measures Suspected Sepsis SIRS Temperature: Pulse: Respiratory Rate: Laboratory Tests 10/17/21 20:15: White Blood Count 8.7 Blood Pressure / Mean: 10/17/21 20:15: Lactic Acid Level 1.37 Laboratory Tests 10/17/21 20:15: Creatinine 1.02, INR Comment 1.0, Platelet Count 311, Total Bilirubin 0.9 Results/Orders Lab Results Laboratory Tests Test 10/17/21 20:15 Range/Units White Blood Count 8.7 4.3-11.0 10^3/uL Red Blood Count 4.67 4.30-5.52 10^6/uL Hemoglobin 14.5 13.3-17.7 g/dL Hematocrit 40 40-54 % Mean Corpuscular Volume 87 80-99 fL Mean Corpuscular Hemoglobin 31 25-34 pg Mean Corpuscular Hemoglobin Concent 36 32-36 g/dL Red Cell Distribution Width 13.0 10.0-14.5 % Platelet Count 311 130-400 10^3/uL Mean Platelet Volume 9.5 9.0-12.2 fL Immature Granulocyte % (Auto) 0 % Neutrophils (%) (Auto) 76 H 42-75 % Lymphocytes (%) (Auto) 17 12-44 % Monocytes (%) (Auto) 7 0-12 % Eosinophils (%) (Auto) 1 0-10 % Basophils (%) (Auto) 0 0-10 % Neutrophils # (Auto) 6.5 1.8-7.8 10^3/uL Lymphocytes # (Auto) 1.4 1.0-4.0 10^3/uL Monocytes # (Auto) 0.6 0.0-1.0 10^3/uL Eosinophils # (Auto) 0.0 0.0-0.3 10^3/uL Basophils # (Auto) 0.0 0.0-0.1 10^3/uL Immature Granulocyte # (Auto) 0.0 0.0-0.1 10^3/uL Prothrombin Time 13.7 12.2-14.7 SEC INR Comment 1.0 0.8-1.4 Activated Partial Thromboplast Time 38 H 24-35 SEC D-Dimer 0.70 H 0.00-0.49 UG/ML Sodium Level 134 L 135-145 MMOL/L Potassium Level 3.5 L 3.6-5.0 MMOL/L Chloride Level 97 L 98-107 MMOL/L Carbon Dioxide Level 21 21-32 MMOL/L Anion Gap 16 H 5-14 MMOL/L Blood Urea Nitrogen 11 7-18 MG/DL Creatinine 1.02 0.60-1.30 MG/DL Estimat Glomerular Filtration Rate 78 BUN/Creatinine Ratio 11 Glucose Level 132 H 70-105 MG/DL Lactic Acid Level 1.37 0.50-2.00 MMOL/L Calcium Level 9.6 8.5-10.1 MG/DL Corrected Calcium 9.7 8.5-10.1 MG/DL Total Bilirubin 0.9 0.1-1.0 MG/DL Aspartate Amino Transf (AST/SGOT) 25 5-34 U/L Alanine Aminotransferase (ALT/SGPT) 20 0-55 U/L Alkaline Phosphatase 60 40-136 U/L C-Reactive Protein High Sensitivity 27.58 H 0.00-0.50 MG/DL Total Protein 8.0 6.4-8.2 GM/DL Albumin 3.9 3.2-4.5 GM/DL My Orders Orders - CINDY FELIX MD Lactated Ringers (Lr 1000 Ml Iv Solution (10/17/21 20:19) Cbc With Automated Diff (10/17/21 20:19) Comprehensive Metabolic Panel (10/17/21 20:19) Blood Culture (10/17/21 20:19) Sputum Culture (10/17/21 20:19) Protime With Inr (10/17/21 20:19) Partial Thromboplastin Time (10/17/21 20:19) Chest 1 View, Ap/Pa Only (10/17/21 20:19) Ed Iv/Invasive Line Start (10/17/21 20:19) Ed Iv/Invasive Line Start (10/17/21 20:19) Vital Signs Adult Sepsis Patie Q15M (10/17/21 20:19) O2 (10/17/21 20:19) Remove Rings In Anticipation O (10/17/21 20:19) Lactic Acid Analyzer (10/17/21 20:19) Ketorolac Injection (Toradol Injection) (10/17/21 20:19) Ketorolac Injection (Toradol Injection) (10/17/21 20:17) Lactated Ringers (Lr 1000 Ml Iv Solution (10/17/21 20:17) Fibrin Degradation Products (10/17/21 20:15) Hs C Reactive Protein (10/17/21 20:15) Lactated Ringers (Lr 1000 Ml Iv Solution (10/17/21 21:00) Vital Signs/I&O 10/17/21 20:34 Temp 37.9 Pulse 117 Resp 18 B/P (MAP) 139/99 (112) Pulse Ox 94 O2 Delivery Room Air Capillary Refill : Progress Note : Progress Note Seen and evaluated. IV, labs, chest x-ray, LR 1 L bolus and Toradol 30 mg IV ordered. Monitor patient. 2100: Repeat LR 1 L bolus. Overall feeling a little better. Monitor patient. 2151: Overall improved. O2 sat 97% on room air right now. Discharged home with return precautions. Patient verbalized understanding of instructions and agreement with plan. Diagnostic Imaging Diagonstic Imaging: Xray Plain Films/CT/US/NM/MRI: chest Comments [facility] [place] NAME: ANT BELTRAN [facility] REC#: [id number] PT STATUS: REG ER : 1970 PHYSICIAN: CINDY FELIX MD ADMIT DATE: 10/17/21/ER Signed Date of Exam:10/17/21 CHEST 1 VIEW, AP/PA ONLY EXAMINATION: Chest 1 view. HISTORY: Covid positive. COMPARISON: None available. FINDINGS: Patchy opacities are seen in the lung bases, bilaterally. No pleural effusion or pneumothorax. The cardiac silhouette is unremarkable. No acute osseous abnormalities. IMPRESSION: Patchy bibasilar opacities, likely representing the patient's history of Covid infection. Dictated by: Dictated on workstation # [id number] Dict: 10/17/212049 Trans: 10/17/212055 JOS [id number] Interpreted by: KASHIF WINKLER DO Electronically signed by: KASHIF WINKLER DO 10/17/212055 Departure Impression Primary Impression: COVID-19 virus infection Additional Impression: Dehydration Disposition: HOME, SELF-CARE Condition: Improved Departure-Patient Inst. Decision time for Depature: 21:53 Referrals: NO,LOCAL PHYSICIAN (PCP/Family) Primary Care Physician Patient Instructions: COVID-19 (DC), Prone Position, Dehydration, Adult (DC) Add. Discharge Instructions: All discharge instructions reviewed with patient and/or family. Voiced understanding. Drink plenty of fluids and get plenty of rest. Your COVID-19 test was positive. You will need to remain in isolation for at least 10 days with day 0 __DEC 1___ and you will count for 10 days from there. You must be symptom improving and fever free in the last 3 days without fever reducing medicines to be out of isolation after the 10th day. You need to notify your close contacts so that they may quarantine and this will include anybody that you are around for 10 minutes within 6 feet 2 days prior to onset of symptoms. Monitor your oxygen saturation while resting. Currently it is __95__ percent. If that starts to decline to 90 or below, please return immediately to the emergency department for further evaluation. You may take ibuprofen 600 mg every 8 hours as needed for fever or pain. You may take Tylenol/acetaminophen 1000 mg every 8 hours as needed for fever or pain. Return for worse pain, fever, vomiting, weakness, breathing problems or other concerns as needed. CINDY FELIX MD Oct 17, 2021 20:34
[2021-10-17 20:37] LABS: ALBUMIN 3.9 GM/DL (3.2-4.5); POTASSIUM 3.5 MMOL/L (3.6-5.0)
[2021-10-17 20:38] LABS: CALCIUM 9.6 MG/DL (8.5-10.1)
[2021-10-17 20:40] LABS: PROTHROMBIN TIME PATIENT 13.7 SEC (12.2-14.7)
[2021-10-17 20:41] LABS: BILIRUBIN,TOTAL 0.9 MG/DL (0.1-1.0)
[2021-10-17 20:43] LABS: CREATININE SERUM 1.02 MG/DL (0.60-1.30)
--- NOTE | 2021-10-17 20:51 | Diagnostic Imaging Report ---
EXAMINATION: Chest 1 view. HISTORY: Covid positive. COMPARISON: None available. FINDINGS: Patchy opacities are seen in the lung bases, bilaterally. No pleural effusion or pneumothorax. The cardiac silhouette is unremarkable. No acute osseous abnormalities. IMPRESSION: Patchy bibasilar opacities, likely representing the patient's history of Covid infection. Dictated by: Dictated on workstation # [id number]
[2021-10-17 20:53] LABS: FIBRIN DEGRADATION PRODUCTS 0.7 UG/ML (0.00-0.49)
[2021-10-17 22:09] VITALS: BP 156/95
== END 2021-10-17 22:12 | disposition home or self-care (01) ==
LOC: EDUNIT# 19:43 → ER 19:45
DX: U07.1 COVID-19 (principal); E86.0 Dehydration; R00.0 Tachycardia, unspecified
CPT/HCPCS: 36415; 71045; 80053; 83605; 85025; 85379; 85610; 85730; 86141; 87040

== ENCOUNTER 2023-07-23 20:38 | Emergency (ER) | payer BC ==
[~2023-07-23] VITALS: Ht 182.8 cm; Wt 113.0 kg
[2023-07-23] MEDS ORDERED: ASPIRIN 81 MG CHEWABLE TABLET PO ONE (20:45)
[2023-07-23 20:58] LABS: BASOPHILS # (AUTO) 0.1 10^3/uL (0.0-0.1); BASOPHILS % (AUTO) 1 % (0-10); EOSINOPHILS # (AUTO) 0.4 10^3/uL (0.0-0.3); EOSINOPHILS % (AUTO) 4 % (0-10); HEMATOCRIT 44 % (40-54); HEMOGLOBIN 15.5 g/dL (13.3-17.7); LYMPHOCYTES # (AUTO) 2.8 10^3/uL (1.0-4.0); LYMPHOCYTES % (AUTO) 27 % (12-44); MEAN CORPUSCULAR HEMOGLOBIN 32 pg (25-34); MEAN CORPUSCULAR HGB CONC 36 g/dL (32-36); MEAN CORPUSCULAR VOLUME 90 fL (80-99); MEAN PLATELET VOLUME 9.7 fL (9.0-12.2); MONOCYTES # (AUTO) 0.6 10^3/uL (0.0-1.0); MONOCYTES % (AUTO) 6 % (0-12); NEUTROPHILS # (AUTO) 6.5 10^3/uL (1.8-7.8); NEUTROPHILS % (AUTO) 62 % (42-75); PLATELET COUNT 322 10^3/uL (130-400); WHITE BLOOD COUNT 10.4 10^3/uL (4.3-11.0)
[2023-07-23] MEDS: NITROGLYCERIN 0.4 MG SL TABLETS BTL 25'S SL PRN ×2 (21:00→21:05)
[2023-07-23 21:08] LABS: INR 0.9 (0.8-1.4); PROTHROMBIN TIME PATIENT 12.5 SEC (12.2-14.7)
[2023-07-23 21:11] LABS: FIBRIN DEGRADATION PRODUCTS 0.27 UG/ML (0.00-0.49)
--- NOTE | 2023-07-23 21:13 | Diagnostic Imaging Report ---
INDICATION: Chest pain COMPARISON 10/17/2021 FINDINGS: There is flattening of the diaphragms compatible to component of air trapping. Lungs are clear without pneumonia or edema or effusion. There is no pneumothorax. Central pulmonary vasculature appropriate. Heart size unchanged. IMPRESSION: Pulmonary hyperinflation suggesting air trapping. The lungs are clear. Dictated by: Dictated on workstation # [id number]
[2023-07-23 21:19] LABS: ALANINE AMINOTRANSFERASE 45 U/L (0-55); ALBUMIN 4.6 GM/DL (3.2-4.5); ALKALINE PHOSPHATASE 83 U/L (40-136); AMYLASE 46 U/L (25-125); BILIRUBIN,TOTAL 0.4 MG/DL (0.1-1.0); BUN/CREATININE RATIO 12; CALCIUM 9.2 MG/DL (8.5-10.1); CARBON DIOXIDE 24 MMOL/L (21-32); CHLORIDE 105 MMOL/L (98-107); CREATINE KINASE 105 U/L (30-200); CREATININE SERUM 1.07 MG/DL (0.60-1.30); GFR ESTIMATED 84; GLUCOSE 137 MG/DL (70-105); LIPASE 22 U/L (8-78); POTASSIUM 3.4 MMOL/L (3.6-5.0); SODIUM 139 MMOL/L (135-145); TOTAL PROTEIN 7.3 GM/DL (6.4-8.2)
[2023-07-23 21:26] LABS: CREATINE KINASE MB 1.4 NG/ML (<6.6)
[2023-07-24] MEDS ORDERED: KETOROLAC INJ 30 MG/ML VIAL IVP ONE (00:15)
--- NOTE | 2023-07-24 00:56 | ED Cardiac General ---
History of Present Illness General Chief Complaint: Chest Pain Stated Complaint: CHEST PAIN Nursing Triage Note: PT AMB TO [facility] 9 WITH CC OF CP THAT STARTED AT 6PM TODAY AND HTN. PT STATES THAT PAIN IS ON THE LEFT SIDE AND RADIATES TO LEFT SHOULDER. PT REPORTS BP WAS 220/120 AT 5PM TODAY. Allergies and Home Medications Allergies Coded Allergies: No Known Drug Allergies (Unverified , 08/28/14) Patient Home Medication List Amoxicillin (Amoxicillin) 875 Mg Tablet, (Reported) Entered as Reported by: ANNA MANZANO on 12/16/17 0004 Benzonatate (Benzonatate) 200 Mg Capsule, (Reported) Entered as Reported by: ANNA MANZANO on 12/16/17 0004 Past [id number] Hx Patient Social History Tobacco Use?: No Substance use?: No Alcohol Use?: Yes Alcohol Frequency: Couple times a week Past Medical History Surgery/Hospitalization HX: SX: ORTHO, APPY, HERNIA Surgeries: Yes (knee, hernia, thumb) Appendectomy, Orthopedic Respiratory: Yes (asthma as child) Asthma Cardiac: No Neurological: No Reproductive Disorders: No Sexually Transmitted Disease: No Gastrointestinal: Yes Gastroesophageal Reflux Musculoskeletal: No Endocrine: No Cancer: No Psychosocial: No Integumentary: No Blood Disorders: No Family Medical History No Pertinent Family Hx Physical Exam Vital Signs Vital Signs - First Documented 07/23/23 20:43 Pulse 66 B/P (MAP) 185/106 (132) Pulse Ox 99 O2 Delivery Room Air Capillary Refill : Height, Weight, BMI Height: 6'0" Weight: 252lbs. oz. 114.335295ar; 33.00 BMI Method:Stated Progress/Results/Core Measures Results/Orders Lab Results Laboratory Tests Test 07/23/23 00:01 07/23/23 20:50 07/23/23 20:59 Range/Units Troponin I < 0.028 < 0.028 <0.028 NG/ML White Blood Count 10.4 4.3-11.0 10^3/uL Red Blood Count 4.85 4.30-5.52 10^6/uL Hemoglobin 15.5 13.3-17.7 g/dL Hematocrit 44 40-54 % Mean Corpuscular Volume 90 80-99 fL Mean Corpuscular Hemoglobin 32 25-34 pg Mean Corpuscular Hemoglobin Concent 36 32-36 g/dL Red Cell Distribution Width 13.4 10.0-14.5 % Platelet Count 322 130-400 10^3/uL Mean Platelet Volume 9.7 9.0-12.2 fL Immature Granulocyte % (Auto) 0 % Neutrophils (%) (Auto) 62 42-75 % Lymphocytes (%) (Auto) 27 12-44 % Monocytes (%) (Auto) 6 0-12 % Eosinophils (%) (Auto) 4 0-10 % Basophils (%) (Auto) 1 0-10 % Neutrophils # (Auto) 6.5 1.8-7.8 10^3/uL Lymphocytes # (Auto) 2.8 1.0-4.0 10^3/uL Monocytes # (Auto) 0.6 0.0-1.0 10^3/uL Eosinophils # (Auto) 0.4 H 0.0-0.3 10^3/uL Basophils # (Auto) 0.1 0.0-0.1 10^3/uL Immature Granulocyte # (Auto) 0.0 0.0-0.1 10^3/uL Prothrombin Time 12.5 12.2-14.7 SEC INR Comment 0.9 0.8-1.4 Activated Partial Thromboplast Time 27 24-35 SEC D-Dimer 0.27 0.00-0.49 UG/ML Sodium Level 139 135-145 MMOL/L Potassium Level 3.4 L 3.6-5.0 MMOL/L Chloride Level 105 98-107 MMOL/L Carbon Dioxide Level 24 21-32 MMOL/L Anion Gap 10 5-14 MMOL/L Blood Urea Nitrogen 13 7-18 MG/DL Creatinine 1.07 0.60-1.30 MG/DL Estimat Glomerular Filtration Rate 84 BUN/Creatinine Ratio 12 Glucose Level 137 H 70-105 MG/DL Calcium Level 9.2 8.5-10.1 MG/DL Corrected Calcium 8.5-10.1 MG/DL Magnesium Level 2.0 1.6-2.4 MG/DL Total Bilirubin 0.4 0.1-1.0 MG/DL Aspartate Amino Transf (AST/SGOT) 27 5-34 U/L Alanine Aminotransferase (ALT/SGPT) 45 0-55 U/L Alkaline Phosphatase 83 40-136 U/L Total Creatine Kinase 105 30-200 U/L Creatine Kinase MB 1.4 <6.6 NG/ML Myoglobin 38.6 10.0-92.0 NG/ML B-Type Natriuretic Peptide 23.9 <100.0 PG/ML Total Protein 7.3 6.4-8.2 GM/DL Albumin 4.6 H 3.2-4.5 GM/DL Amylase Level 46 25-125 U/L Lipase 22 8-78 U/L Influenza Type A (RT-PCR) Not Detected Not Detecte Influenza Type B (RT-PCR) Not Detected Not Detecte SARS-CoV-2 RNA (RT-PCR) Not Detected Not Detecte My Orders Orders - DEBBY PRO DO Ekg Tracing (07/23/23 20:41) Cbc With Automated Diff (07/23/23 20:44) Magnesium (07/23/23 20:44) Chest 1 View, Ap/Pa Only (07/23/23 20:44) Ekg Tracing (07/23/23 20:44) Comprehensive Metabolic Panel (07/23/23 20:44) Myoglobin Serum (07/23/23 20:44) Protime With Inr (07/23/23 20:44) Partial Thromboplastin Time (07/23/23 20:44) O2 (07/23/23 20:44) Monitor-Rhythm Ecg Trace Only (07/23/23 20:44) Ed Iv/Invasive Line Start (07/23/23 20:44) Creatine Kinase (07/23/23 20:44) Creatine Kinase Mb (07/23/23 20:44) Lipase (07/23/23 20:44) Amylase (07/23/23 20:44) Bnp Winkler (07/23/23 20:44) Fibrin Degradation Products (07/23/23 20:44) Troponin I Winkler (07/23/23 20:44) Nitroglycerin 0.4 Mg Btl 25's (Nitroglyc (07/23/23 20:45) Aspirin Chewable Tablet (Aspirin Chewabl (07/23/23 20:45) Covid 19 Inhouse Test (07/23/23 20:44) Influenza A And B By Pcr (07/23/23 20:44) Ekg Tracing (07/23/23 23:55) Troponin I Margy (07/23/23 23:55) Ketorolac Injection (Ketorolac Injection (9/15/23 00:15) Medications Given in ED Current Medications Medications Dose Ordered Sig/Qian Route Start Time Stop Time Status Last Admin Dose Admin Aspirin 324 mg ONCE ONCE PO 07/23/23 20:45 07/23/23 20:46 DC 07/23/23 20:58 324 MG Ketorolac Tromethamine 30 mg ONCE ONCE IVP 07/24/23 00:15 07/24/23 00:16 DC 07/24/23 00:17 30 MG Nitroglycerin 0.4 mg UD PRN SL 07/23/23 20:45 07/23/23 21:05 0.4 MG Vital Signs/I&O 07/23/23 20:43 Pulse 66 B/P (MAP) 185/106 (132) Pulse Ox 99 O2 Delivery Room Air Blood Pressure Mean: 132 Departure Impression Primary Impression: Chest pain Additional Impressions: Hypertension Stress reaction Disposition: 01 HOME, SELF-CARE Condition: Improved Departure-Patient Inst. Decision time for Depature: 00:55 Referrals: NO,LOCAL PHYSICIAN (PCP) Primary Care Physician Patient Instructions: High Blood Pressure ED, Stress, DASH Diet, Chest Pain (DC) Add. Discharge Instructions: HOME, REST TYLENOL AND MOTRIN FOR PAIN FOLLOW UP WITH RAFIA VERNON NEXT WEEK FOR FURTHER CARE RETURN TO ER IF SYMPTOMS WORSEN All discharge instructions reviewed with patient and/or family. Voiced understanding. DEBBY PRO DO Jul 24, 2023 00:56
[2023-07-24 01:01] VITALS: BP 139/89
== END 2023-07-24 01:04 | disposition home or self-care (01) ==
LOC: EDUNIT# 20:38 → ER 20:41
DX: I10 Essential (primary) hypertension (principal); F43.9 Reaction to severe stress, unspecified; Z20.822 Contact with and (suspected) exposure to COVID-19
CPT/HCPCS: 36415; 71045; 80053; 82150; 82550; 82553; 83690; 83735; 83874; 83880; 84484; 85025; 85379; 85610; 85730; 87636; 93005; 93041